=== PATIENT | female | born 1975 ===

== ENCOUNTER 2020-05-02 05:35 | Day surgery (SDC) | payer OTHER ==
[2020-05-02] MEDS ORDERED: PERCOCET 5-3251 EACH PO (09:36)
== END 2020-05-02 11:20 | disposition home or self-care (01) ==
LOC: CIR.AMB 05:35
PROVIDERS: ATTEND Obstetrics & Gynecology Gynecology
DX: N72 Inflammatory disease of cervix uteri (principal); Z20.822 Contact with and (suspected) exposure to COVID-19